=== PATIENT | female | born 1985 | race Caucasian/White ===

== ENCOUNTER 2016-12-10 05:18 | Inpatient (IN) | payer BC ==
[2016-12-10] MEDS ORDERED: Sodium Chloride 0.9% 2.5 ML Syringe FLUSH PRN (06:23)
[2016-12-10] MEDS ORDERED: ceFAZolin 2 GM in Premix Bag 1 BAG IV ONE (06:23)
[2016-12-10] MEDS ORDERED: Sodium Chloride 0.9% 10 ML Syringe FLUSH PRN (06:23)
[2016-12-10] MEDS ORDERED: Citric Acid/Sodium Citrate Solution 30 ML Cup PO SCH (06:30)
[2016-12-10] MEDS: Lactated Ringers 1,000 ML IV SCH ×4 (06:43→19:47)
[2016-12-10] MEDS ORDERED: Morphine PF 10 MG/10 ML SDV ONE (07:15)
[2016-12-10] MEDS ORDERED: Oxytocin/Lactated Ringers 30 UNIT/500 ML BAG ONE (07:25)
--- NOTE | 2016-12-10 07:36 | PCM.PREANE ---
Preanesthetic Assessment - Anesthesia/Transfusion/Family Hx Anesthesia History: Prior Anesthesia Without Reaction (c section x 2) Other Type of Anesthesia Reaction Comment: "sister had cardiac arrest after her gallbladder surgery" Transfusion History: No Prior Transfusion(s) - Review of Systems General: No Symptoms Pulmonary: No Symptoms Cardiovascular: No Symptoms Gastrointestinal: No symptoms Neurological: No Symptoms Other: Reports: None - Physical Assessment NPO Status Date: 12/09/16 Height: 1.62 m Weight: 107.048 kg ASA Class: 2 Mental Status: Alert & Oriented x3 Airway Class: Mallampati = 1 Dentition: Reports: Normal Dentition ROM/Head Extension: Full Lungs: Clear to auscultation, Normal respiratory effort Cardiovascular: Regular Rate, Regular Rhythm - Lab Values: Laboratory Last Values WBC 9.79 K/uL (4.0-11.0) 12/09/16 09:20 RBC 4.39 M/uL (4.30-5.90) 12/09/16 09:20 Hgb 13.2 g/dL (12.0-16.0) 12/09/16 09:20 Hct 38.5 % (36.0-46.0) 12/09/16 09:20 MCV 87.7 fL (80.0-98.0) 12/09/16 09:20 MCH 30.1 pg (27.0-32.0) 12/09/16 09:20 MCHC 34.3 g/dL (31.0-37.0) 12/09/16 09:20 RDW Std Deviation 38.9 fl (28.0-62.0) 12/09/16 09:20 RDW Coeff of Roel 13 % (11.0-15.0) 12/09/16 09:20 Plt Count 123 K/uL (150-400) L 12/09/16 09:20 MPV 13.20 fL (7.40-12.00) H 12/09/16 09:20 Blood Type A POSITIVE 12/09/16 09:20 Antibody Screen NEGATIVE 12/09/16 09:20 - Allergies Allergies/Adverse Reactions: Allergies Allergy/AdvReac Type Severity Reaction Status Date / Time No Known Allergies Allergy Verified 12/04/16 08:37 - Blood Blood Available: Yes - Anesthesia Plan Pre-Op Medication Ordered: Antacids - Acknowledgements Anesthesia Type Planned: Spinal Pt an Appropriate Candidate for the Planned Anesthesia: Yes Alternatives and Risks of Anesthesia Discussed w Pt/Guardian: Yes Pt/Guardian Understands and Agrees with Anesthesia Plan: Yes Additional Comments: gestational DM, diet controlled PreAnesthesia Questionnaire HEENT History: Reports: None Genitourinary History: Reports: None [employer] History: Reports: Endocrine/Metabolic History: Reports: Diabetes, Gestational, Obesity/BMI 30+ Other Endocrine/Metabolic History: gestational diabetes controlled by diet - Past Surgical History Head Surgeries/Procedures: Reports: None HEENT Surgical History: Reports: Tonsillectomy Female Surgical History: Reports: Section - SUBSTANCE USE Smoking Status *Q: Never Smoker Recreational Drug Use History: No - HOME MEDS Home Medications: Home Meds Acetaminophen [Tylenol] 2 tab PO ASDIRECTED 12/04/16 [History] Vit W-Ca,Fe,FA(<1 mg) [ Vitamins] 1 tab PO DAILY 12/04/16 [ History] - CURRENT (IN HOUSE) MEDS Current Meds: Current Medications Citric Acid/Sodium Citrate (Bicitra Solution) 30 ml PO .ONCE HIGINIO Lactated Ringer's (Ringers, Lactated) 1,000 mls @ 500 mls/hr IV .BOLUS HIGINIO Last Admin: 12/10/16 07:13 Dose: 500 mls/hr Sodium Chloride (Saline Flush) 10 ml FLUSH ASDIRECTED PRN PRN Reason: Keep Vein Open Sodium Chloride (Saline Flush) 2.5 ml FLUSH ASDIRECTED PRN PRN Reason: Keep Vein Open Discontinued Medications Cefazolin Sodium/Dextrose 2 gm (/ Premix) 50 mls @ 100 mls/hr IV ONETIME ONE Stop: 12/10/16 06:52 Oxytocin/Lactated Ringer's (Pitocin In Lr 30 Units/500 Ml) Confirm Administered Dose 30 unit in 500 mls @ as directed .ROUTE .STK-MED ONE Stop: 12/10/16 07:26 Morphine Sulfate (Duramorph Pf) Confirm Administered Dose 10 mg .ROUTE .STK-MED ONE Stop: 12/10/16 07:16
[2016-12-10] MEDS ORDERED: ePHEDrine 50 MG/ML SDV ONE (08:22)
[2016-12-10] MEDS ORDERED: Phenylephrine/Normal Saline 100 MCG/ML 10 ML Syringe ONE (08:36)
[2016-12-10] MEDS ORDERED: Octyl 2-Cyanoacrylate 1 Tube ONE (08:46)
[2016-12-10] MEDS ORDERED: Bisacodyl 10 MG Supp RECTAL PRN (09:20)
[2016-12-10] MEDS ORDERED: Acetaminophen/oxyCODONE 325-5 MG Tab PO PRN ×2 (09:20→09:27)
[2016-12-10] MEDS ORDERED: Simethicone 80 MG Tab.Chew PO PRN (09:20)
[2016-12-10] MEDS ORDERED: Lanolin 100% Cream 7 GM Tube TOP PRN (09:20)
[2016-12-10] MEDS ORDERED: Aluminum Hydroxide/Magnesium Hydroxide/Simethicone Susp 30 ML Cup PO PRN (09:20)
[2016-12-10] MEDS ORDERED: diphenhydrAMINE 50 MG/ML SDV IVPUSH PRN ×2 (09:20→09:25)
[2016-12-10] MEDS ORDERED: Ibuprofen 800 MG Tab PO PRN (09:20)
[2016-12-10] MEDS ORDERED: Naloxone 0.4 MG/ML Syringe IVPUSH PRN (09:25)
[2016-12-10] MEDS ORDERED: Nalbuphine 10 MG/1 ML Vial IVPUSH PRN (09:25)
[2016-12-10] MEDS ORDERED: fentaNYL 100 MCG/2 ML SDV IVPUSH PRN (09:27)
--- NOTE | 2016-12-10 09:31 | PCM.OPNOTE ---
- General Post-Op/Procedure Note Date of Surgery/Procedure: 12/10/16 Operative Procedure(s): Repeat LTCS with bilateral salpingectomy Findings: Term female APGARs 8, 8 weight 3340 gm. Delivery of intact placenta with 3V cord. Normal appearing pelvis Pre Op Diagnosis: 39 week IUP. Previous c section, desires repeat. Undesired fertility Post-Op Diagnosis: Same Anesthesia Technique: Spinal Primary Surgeon: Pamela Gandhi Pathology: bilateral fallopian tubes Fluid Replacement, Intraop: 1,500 Output, Urine Amount: 200 EBL in mLs: 500 Condition: Good Free Text/Narrative:: Dictation [id number]
--- NOTE | 2016-12-10 09:45 | PCM.POSTAN ---
POST ANESTHESIA ASSESSMENT - MENTAL STATUS Mental Status: alert, oriented - RESPIRATORY Respiratory Status: respiratory rate WNL, airway patent, O2 saturation stable - CARDIOVASCULAR CV Status: pulse rate WNL, blood pressure stable - GASTROINTESTINAL GI Status: no symptoms - PAIN Pain Score: 0 - POST OP HYDRATION Hydration Status: adequate & stable
[2016-12-10] MEDS: Ketorolac 30 MG/ML SDV IVPUSH SCH ×3 (09:50→23:18)
[2016-12-10] MEDS: Ondansetron 4 MG/2 ML SDV IV PRN ×2 (11:03→14:42)
--- NOTE | 2016-12-10 14:46 | OR ---
SURGEON: Pamela Gandhi M.D. DATE OF PROCEDURE: 12/10/2016 PREOPERATIVE DIAGNOSES: 1. A 39-week intrauterine . 2. Previous section x2, desires repeat. 3. Undesired fertility. POSTOPERATIVE DIAGNOSES: 1. A 39-week intrauterine . 2. Previous section x2, desires repeat. 3. Undesired fertility. PROCEDURE: Repeat low transverse section with bilateral salpingectomy. ANESTHESIA: Spinal. ESTIMATED BLOOD LOSS: 500 mL. FLUIDS: 1500 mL crystalloid. COMPLICATIONS: None known. FINDINGS: Term female. score 8 at 1 minute, 8 at 5 minute. Weight of 3340 g. Intact placenta, 3-vessel cord, normal appearing pelvis. DISPOSITION: The patient to PACU, stable. , nursery. PROCEDURE IN DETAIL: Morenita is a 30-year-old, G3, P2-0-0-2 at 39 weeks' gestational age, who presents today for scheduled repeat delivery. She also no longer desired fertility and would like to have tubal ligation performed at the time of the repeat delivery. This has been approved by the [facility] subethics Committee. Risks of procedures have been discussed. Proper consent obtained. The patient was taken to the operating room, where she underwent spinal anesthetic, was then placed in dorsal supine position with leftward tilt. SCDs to lower extremities. Ricks to gravity. She was prepped and draped in the usual sterile fashion. Received Ancef prophylactically. Time-out was performed. Anesthesia was tested and found to be adequate. Previous Pfannenstiel scar was now excised. Subcutaneous tissue was incised down to the level of the midline. Subcutaneous tissue was now dissected down the midline fascia which was incised and lateralized on either side sharply and bluntly. The superior aspect of fascia was tented upward, dissected sharply and bluntly away from underlying muscles on the inferior aspect of the fascia. Rectus muscle in the midline. The peritoneum was tented upward and entered sharply. Rectus muscles were lateralized bluntly and sharply. The uterovesical reflection was visualized. The self-retaining retractor now gently placed. Uterine position, position palpated. Bladder flap was created sharply and bluntly. Bladder was mobilized away from the lower uterine segment. Low transverse hysterotomy was now performed. Uterine cavity was entered bluntly using scalpel and clear fluid was returned with amniotomy. Hysterotomy was lateralized bluntly. The infant head was now flexed and delivered from the pelvis. Fundal pressure was applied. The 's head was delivered followed by anterior shoulder posterior made by without difficulty. The 's oropharynx and nares were bulb suctioned. Cord clamped x2 and cut. Infant was handed off to attending nursing staff. Cord arterial, cord venous, cord blood sampling was obtained. The placenta was now delivered. Uterine cavity was cleared of all clot and debris. Hysterotomy was repaired using 0 Vicryl in continuous running locked fashion followed by re-imbricating layer. Posterior aspect of the uterus inspected, no defects or hematomas found to be forming. Region was well irrigated and suction dried. The fallopian tubes were now isolated. The right fallopian tube was secured with a Hunter clamp x2, and using a Harmonic handheld device, the salpingectomy was now performed. The right fallopian tube will be sent to Pathology and a similar fashion was performed on the patient's left side. The fallopian tube was isolated with Hunter clamps and salpingectomy was performed. This will go to Pathology. The operative sites along the salpingectomies were inspected, any areas of oozing were cauterized. Hemostasis overall appears evident. The uterus turned to the abdominal cavity. Colonic gutters were cleared of all clot and debris, well irrigated and suction dried. The salpingectomy site was again inspected, found to be hemostatic. Self-retaining retractor now gently removed. The rectus muscles reapproximated using 0 Vicryl in inverted mattress suture technique. Anterior aspect of the muscle, posterior aspect fascia was closely inspected. Any areas of oozing were cauterized. The rectus fascia was reapproximated using 0 Vicryl in continuous running fashion beginning laterally and incised in the midline. Subcutaneous tissue was well irrigated, suction dried. Any areas of oozing were cauterized. Deep subcutaneous tissue was reapproximated using 3-[address]-1 in continuous running fashion. The skin edges were reapproximated with 3-0 Vicryl in a David needle and the incision was reinforced with Dermabond. Uterus remained firm. Hemostasis evident. Sponge, instrument, and needle count were correct x2. The patient tolerated this procedure well overall. She will go to PACU in stable condition. The fallopian tube is pathology. RADHA / JESSICA /[id number] MTDMichael
--- NOTE | 2016-12-10 21:06 | PCM48HPAN ---
Post Anesthesia Note - EVALUATION WITHIN 48HRS OF ANESTHETIC Vital Signs in Normal Range: Yes Patient Participated in Evaluation: Yes Respiratory Function Stable: Yes Airway Patent: Yes Cardiovascular Function Stable: Yes Hydration Status Stable: Yes Pain Control Satisfactory: Yes Nausea and Vomiting Control Satisfactory: Yes Mental Status Recovered: Yes
[2016-12-10] MEDS: Docusate Sodium 100 MG Cap PO SCH (23:00)
--- NOTE | 2016-12-11 04:57 | PCM.PNPP ---
- General Info Date of Service: 12/11/16 Functional Status: Reports: pain controlled, tolerating diet, ambulating - Review of Systems General: Denies: Fever, Weakness Cardiovascular: Denies: Chest Pain, Palpitations, Lightheadedness Gastrointestinal: Reports: Nausea (is improved this morning'). Denies: Vomiting Genitourinary: Denies: flank pain Neurological: Denies: Headache Psychiatric: Reports: no symptoms - General Info Date of Service: 12/11/16 - Patient Data Vital Signs - most recent: Last Vital Signs Temp 36.6 C 12/11/16 00:05 Pulse 79 12/11/16 03:00 Resp 18 12/11/16 03:00 BP 131/57 L 12/11/16 00:05 Pulse Ox 96 12/11/16 03:00 Weight - most recent: 107.048 kg I&O - last 24 hours: Intake & Output 12/10/16 12/10/16 12/11/16 14:59 22:59 06:59 Intake Total 3100 1900 Output Total 400 400 Balance 2700 1500 Lab Results - last 24 hrs: Laboratory Results - last 24 hr 12/10/16 Range/Units 08:07 POC Glucose 80 (60-110) mg/dL Med Orders - Current: Current Medications Al Hydroxide/Mg Hydroxide (Mag-Al Plus) 30 ml PO Q8H PRN PRN Reason: Heartburn Bisacodyl (Dulcolax) 10 mg RECTAL .ONCE PRN PRN Reason: Constipation Citric Acid/Sodium Citrate (Bicitra Solution) 30 ml PO .ONCE HIGINIO Diphenhydramine HCl (Benadryl) 25 mg IVPUSH Q6H PRN PRN Reason: Itching or Nausea Last Admin: 12/10/16 11:03 Dose: 25 mg Diphenhydramine HCl (Benadryl) 25 mg IVPUSH Q4H PRN PRN Reason: Itching Stop: 12/11/16 09:26 Docusate Sodium (Colace) 100 mg PO BID HIGINIO Last Admin: 12/10/16 23:00 Dose: Not Given Emollient Ointment (Lansinoh Hpa) 0 gm TOP ASDIRECTED PRN PRN Reason: Sore Nipples Fentanyl (Sublimaze) 25 - 50 mcg IVPUSH Q30M PRN PRN Reason: Pain Last Admin: 12/10/16 13:31 Dose: 25 mcg Lactated Ringer's (Ringers, Lactated) 1,000 mls @ 500 mls/hr IV .BOLUS [facility] Last Admin: 12/10/16 07:13 Dose: 500 mls/hr Lactated Ringer's (Ringers, Lactated) 1,000 mls @ 125 mls/hr IV ASDIRECTED [facility] Last Admin: 12/10/16 19:47 Dose: 125 mls/hr Ibuprofen (Motrin) 800 mg PO Q8H PRN PRN Reason: mild pain or fever Ketorolac Tromethamine (Toradol) 30 mg IVPUSH Q6H HIGINIO Stop: 12/11/16 09:31 Last Admin: 12/10/16 23:18 Dose: 30 mg Nalbuphine HCl (Nubain) 5 mg IVPUSH Q3H PRN PRN Reason: Pruritis Stop: 12/11/16 09:26 Naloxone HCl (Narcan) 0.1 mg IVPUSH ONETIME PRN PRN Reason: Other Stop: 12/11/16 09:26 Ondansetron HCl (Zofran) 4 mg IV Q4H PRN PRN Reason: Nausea/Vomiting Last Admin: 12/10/16 14:42 Dose: 4 mg Oxycodone/Acetaminophen (Percocet 325-5 Mg) 1 tab PO Q4H PRN PRN Reason: Pain (moderate 4-6) Oxycodone/Acetaminophen (Percocet 325-5 Mg) 2 tab PO Q4H PRN PRN Reason: Pain (moderate 4-6) Oxycodone/Acetaminophen (Percocet 325-5 Mg) 1 - 2 tab PO Q6H PRN PRN Reason: Pain Stop: 12/12/16 14:00 Last Admin: 12/11/16 04:24 Dose: 2 tab Simethicone (Simethicone) 80 mg PO Q4H PRN PRN Reason: Gas Sodium Chloride (Saline Flush) 10 ml FLUSH ASDIRECTED PRN PRN Reason: Keep Vein Open Sodium Chloride (Saline Flush) 2.5 ml FLUSH ASDIRECTED PRN PRN Reason: Keep Vein Open Discontinued Medications Ephedrine Sulfate (Ephedrine Sulfate) Confirm Administered Dose 50 mg .ROUTE .STK-MED ONE Stop: 12/10/16 08:23 Cefazolin Sodium/Dextrose 2 gm (/ Premix) 50 mls @ 100 mls/hr IV ONETIME ONE Stop: 12/10/16 06:52 Last Admin: 12/10/16 20:37 Dose: Not Given Oxytocin/Lactated Ringer's (Pitocin In Lr 30 Units/500 Ml) Confirm Administered Dose 30 unit in 500 mls @ as directed .ROUTE .STK-MED ONE Stop: 12/10/16 07:26 Last Admin: 12/10/16 20:38 Dose: Not Given Morphine Sulfate (Duramorph Pf) Confirm Administered Dose 10 mg .ROUTE .STK-MED ONE Stop: 12/10/16 07:16 Octyl Cyanoacrylate (Dermabond Advance) Confirm Administered Dose 1 applic .ROUTE .STK-MED ONE Stop: 12/10/16 08:47 Phenylephrine HCl (Phenylephrine In Ns 100 Mcg/Ml) Confirm Administered Dose 1 mg .ROUTE .STK-MED ONE Stop: 12/10/16 08:37 - Interaction Support Person: - Recovery Exam Fundal Tone: Firm Fundal Level: 1 Fingerbreadths Below Umbilicus Fundal Placement: Midline Lochia Amount: Small Lochia Color: Rubra/Red Perineum Description: Intact, Minimal Bruising/Swelling Episiotomy/Laceration: None Bladder Status: Indwelling Catheter in Place Urinary Elimination: Indwelling Catheter - Exam General: alert, oriented Lungs: Normal respiratory effort Cardiovascular: Regular Rate, Regular Rhythm Abdomen: bowel sounds present, soft. No: CVA tenderness Extremities: no calf tenderness Skin: warm, dry, intact Wound/Incisions: no drainage, drainage. No: erythema Psy/Mental Status: alert, normal affect - Problem List & Annotations (1) delivery delivered SNOMED Code(s): 541668591 Code(s): O82 - ENCOUNTER FOR DELIVERY WITHOUT INDICATION Status: Acute Current Visit: Yes - Problem List Review Problem List Initiated/Reviewed/Updated: Yes - My Orders Last 24 Hours: My Active Orders 12/10/16 06:23 Patient Status [ADT] Routine Up ad Anali [RC] ASDIRECTED Vital Signs [RC] PER UNIT ROUTINE Sodium Chloride 0.9% [Saline Flush] 10 ml FLUSH ASDIRECTED PRN Sodium Chloride 0.9% [Saline Flush] 2.5 ml FLUSH ASDIRECTED PRN Peripheral IV Insertion Adult [OM.PC] Routine Schedule Procedure [COMM] Per Unit Routine Resuscitation Status Routine 12/10/16 06:25 Notify Provider Vital Signs [RC] PRN 12/10/16 06:30 Citric Acid/Sodium Citrate [Bicitra Solution] 30 ml PO .ONCE Lactated Ringers [Ringers, Lactated] 1,000 ml IV .BOLUS 12/10/16 09:20 Ambulate [RC] PER UNIT ROUTINE Communication Order [RC] PER UNIT ROUTINE Communication Order [RC] PER UNIT ROUTINE Communication Order [RC] Per Unit Routine May Shower [RC] ASDIRECTED Notify Provider Intake and Out [RC] ASDIRECTED Notify Provider Vital Signs [RC] ASDIRECTED Oxygen Therapy [RC] ASDIRECTED RT Incentive Spirometry [RC] Q2HWA Vital Signs [RC] PER UNIT ROUTINE Acetaminophen/oxyCODONE [Percocet 325-5 MG] 1 tab PO Q4H PRN Acetaminophen/oxyCODONE [Percocet 325-5 MG] 2 tab PO Q4H PRN Alum Hydrox/Mag Hydrox/Simeth [Mag-Al Plus] 30 ml PO Q8H PRN Bisacodyl [Dulcolax] 10 mg RECTAL .ONCE PRN Ibuprofen [Motrin] 800 mg PO Q8H PRN Lanolin [Lansinoh HPA] See Dose Instructions TOP ASDIRECTED PRN Ondansetron [Zofran] 4 mg IV Q4H PRN Simethicone 80 mg PO Q4H PRN diphenhydrAMINE [Benadryl] 25 mg IVPUSH Q6H PRN Abdominal Binder [OM.PC] Routine Assess Lochia [WOMSER] Per Unit Routine Assess Uterine Involution [WOMSER] Per Unit Routine Breast Pump [WOMSER] Per Unit Routine Heat Therapy [OM.PC] Routine Ice Therapy [OM.PC] Routine Peripheral IV Discontinue [OM.PC] Routine Sequential Compression Device [OM.PC] Per Unit Routine 12/10/16 09:21 Antiembolic Devices [RC] PER UNIT ROUTINE 12/10/16 09:30 Ketorolac [Toradol] 30 mg IVPUSH Q6H Lactated Ringers [Ringers, Lactated] 1,000 ml IV ASDIRECTED 12/10/16 21:00 Docusate Sodium [Colace] 100 mg PO BID 12/10/16 Lunch Regular Diet [DIET] 12/11/16 05:11 HEMOGLOBIN/HEMATOCRIT,HH [HEME] Timed - Assessment Assessment:: POD 1 status post repeat c section/bilateral salpingectomy Gestational diabetes-diet controlled - Plan Plan:: Continue postop cares. Ambulate today, remove rodrigeuz. may shower later.
[2016-12-11] MEDS: Ketorolac 30 MG/ML SDV IVPUSH SCH ×2 (05:13→10:38)
[2016-12-11] MEDS: Docusate Sodium 100 MG Cap PO SCH ×2 (09:22→22:03)
[2016-12-11] MEDS: Acetaminophen/oxyCODONE 325-5 MG Tab PO PRN ×4 (09:23→22:03)
[2016-12-12] MEDS: Acetaminophen/oxyCODONE 325-5 MG Tab PO PRN ×2 (03:32→10:39)
--- NOTE | 2016-12-12 07:30 | PCM.PNPP ---
- General Info Date of Service: 12/12/16 Functional Status: Reports: pain controlled, tolerating diet, ambulating, urinating - Review of Systems General: Reports: No Symptoms HEENT: Reports: no symptoms Pulmonary: Reports: no symptoms Cardiovascular: Reports: No Symptoms Gastrointestinal: Reports: No symptoms Genitourinary: Reports: no symptoms Musculoskeletal: Reports: no symptoms Skin: Reports: no symptoms Neurological: Reports: No Symptoms Psychiatric: Reports: no symptoms - Patient Data Vital Signs - most recent: Last Vital Signs Temp 36.7 C 12/12/16 05:05 Pulse 83 12/12/16 05:05 Resp 16 12/12/16 05:05 BP 117/56 L 12/12/16 05:05 Pulse Ox 95 12/12/16 05:05 Weight - most recent: 107.048 kg Lab Results - last 24 hrs: Laboratory Results - last 24 hr 12/11/16 Range/Units 06:13 POC Glucose 109 (60-110) mg/dL Med Orders - Current: Current Medications Al Hydroxide/Mg Hydroxide (Mag-Al Plus) 30 ml PO Q8H PRN PRN Reason: Heartburn Bisacodyl (Dulcolax) 10 mg RECTAL .ONCE PRN PRN Reason: Constipation Citric Acid/Sodium Citrate (Bicitra Solution) 30 ml PO .ONCE HIGINIO Diphenhydramine HCl (Benadryl) 25 mg IVPUSH Q6H PRN PRN Reason: Itching or Nausea Last Admin: 12/10/16 11:03 Dose: 25 mg Docusate Sodium (Colace) 100 mg PO BID HIGINIO Last Admin: 12/11/16 22:03 Dose: 100 mg Emollient Ointment (Lansinoh Hpa) 0 gm TOP ASDIRECTED PRN PRN Reason: Sore Nipples Fentanyl (Sublimaze) 25 - 50 mcg IVPUSH Q30M PRN PRN Reason: Pain Last Admin: 12/10/16 13:31 Dose: 25 mcg Lactated Ringer's (Ringers, Lactated) 1,000 mls @ 500 mls/hr IV .BOLUS HIGINIO Last Admin: 12/10/16 07:13 Dose: 500 mls/hr Lactated Ringer's (Ringers, Lactated) 1,000 mls @ 125 mls/hr IV ASDIRECTED [facility] Last Infusion: 12/11/16 04:15 Dose: Infused Ibuprofen (Motrin) 800 mg PO Q8H PRN PRN Reason: mild pain or fever Ondansetron HCl (Zofran) 4 mg IV Q4H PRN PRN Reason: Nausea/Vomiting Last Admin: 12/10/16 14:42 Dose: 4 mg Oxycodone/Acetaminophen (Percocet 325-5 Mg) 1 tab PO Q4H PRN PRN Reason: Pain (moderate 4-6) Oxycodone/Acetaminophen (Percocet 325-5 Mg) 2 tab PO Q4H PRN PRN Reason: Pain (moderate 4-6) Last Admin: 12/12/16 03:32 Dose: 2 tab Oxycodone/Acetaminophen (Percocet 325-5 Mg) 1 - 2 tab PO Q6H PRN PRN Reason: Pain Stop: 12/12/16 14:00 Last Admin: 12/11/16 04:24 Dose: 2 tab Simethicone (Simethicone) 80 mg PO Q4H PRN PRN Reason: Gas Sodium Chloride (Saline Flush) 10 ml FLUSH ASDIRECTED PRN PRN Reason: Keep Vein Open Sodium Chloride (Saline Flush) 2.5 ml FLUSH ASDIRECTED PRN PRN Reason: Keep Vein Open Discontinued Medications Diphenhydramine HCl (Benadryl) 25 mg IVPUSH Q4H PRN PRN Reason: Itching Stop: 12/11/16 09:26 Ephedrine Sulfate (Ephedrine Sulfate) Confirm Administered Dose 50 mg .ROUTE .STK-MED ONE Stop: 12/10/16 08:23 Cefazolin Sodium/Dextrose 2 gm (/ Premix) 50 mls @ 100 mls/hr IV ONETIME ONE Stop: 12/10/16 06:52 Last Admin: 12/10/16 20:37 Dose: Not Given Oxytocin/Lactated Ringer's (Pitocin In Lr 30 Units/500 Ml) Confirm Administered Dose 30 unit in 500 mls @ as directed .ROUTE .STK-MED ONE Stop: 12/10/16 07:26 Last Admin: 12/10/16 20:38 Dose: Not Given Ketorolac Tromethamine (Toradol) 30 mg IVPUSH Q6H HIGINIO Stop: 12/11/16 09:31 Last Admin: 12/11/16 10:38 Dose: 30 mg Morphine Sulfate (Duramorph Pf) Confirm Administered Dose 10 mg .ROUTE .STK-MED ONE Stop: 12/10/16 07:16 Nalbuphine HCl (Nubain) 5 mg IVPUSH Q3H PRN PRN Reason: Pruritis Stop: 12/11/16 09:26 Naloxone HCl (Narcan) 0.1 mg IVPUSH ONETIME PRN PRN Reason: Other Stop: 12/11/16 09:26 Octyl Cyanoacrylate (Dermabond Advance) Confirm Administered Dose 1 applic .ROUTE .STK-MED ONE Stop: 12/10/16 08:47 Phenylephrine HCl (Phenylephrine In Ns 100 Mcg/Ml) Confirm Administered Dose 1 mg .ROUTE .STK-MED ONE Stop: 12/10/16 08:37 - Infant Interaction Disposition, : in Room with Family Interaction: Holding Feeding: Breastfed ; Nursed Well Support Person: - Recovery Exam Fundal Tone: Firm Fundal Level: 1 Fingerbreadths Below Umbilicus Fundal Placement: Midline Lochia Amount: Scant Lochia Color: Rubra/Red Perineum Description: Intact, Minimal Bruising/Swelling Episiotomy/Laceration: None Bladder Status: Voiding Urinary Elimination: Voided - Exam General: alert, oriented HEENT: Pupils equal Neck: supple Lungs: Clear to auscultation, Normal respiratory effort Cardiovascular: Regular Rate, Regular Rhythm Abdomen: bowel sounds present, soft, no tenderness, no distension Extremities: No: no edema (1+) Skin: warm, dry, intact Wound/Incisions: healing well Neurological: no new focal deficit Psy/Mental Status: alert, normal affect, normal mood - Problem List & Annotations (1) delivery delivered SNOMED Code(s): 595814548 Code(s): O82 - ENCOUNTER FOR DELIVERY WITHOUT INDICATION Status: Acute Current Visit: Yes - Problem List Review Problem List Initiated/Reviewed/Updated: Yes - Assessment Assessment:: POD 2 status post repeat c section/bilateral salpingectomy Gestational diabetes-diet controlled - Plan Plan:: Stable, minimal lochia, pain well controlled. Dismiss to home, discharge instructions given.
[2016-12-12] MEDS: Docusate Sodium 100 MG Cap PO SCH (08:16)
[2016-12-12 08:40] VITALS: BP 111/56
== END 2016-12-12 11:25 | disposition home or self-care (01) | DRG 540 ==
LOC: MW.OB 05:18
PROVIDERS: ADMIT Obstetrics & Gynecology; ATTEND Obstetrics & Gynecology
PROC: 10D00Z1 Extraction of Products of Conception, Low, Open Approach (ICD-10-PCS; principal; 2016-12-10)
PROC: 0UT70ZZ Resection of Bilateral Fallopian Tubes, Open Approach (ICD-10-PCS; 2016-12-10)
DX: O34.211 Maternal care for low transverse scar from previous cesarean delivery (principal); Z3A.39 39 weeks gestation of pregnancy; Z37.0 Single live birth; Z30.2 Encounter for sterilization
CPT/HCPCS: 01961; 36415; 59025; 82962; 85014; 85018; 85027; 86850; 86900; 86901; 88304; A9270-GY; J0690; J1200; J1885; J2270; J2405; J3010; J7120

== ENCOUNTER 2017-01-28 12:34 | Emergency (ER) | payer BC ==
--- NOTE | 2017-01-28 13:58 | CR ---
EXAMINATION: Lumbar spine HISTORY: Pain COMPARISON: None TECHNIQUE: AP and a previous FINDINGS: The lumbar spinal alignment is normal. The vertebral body heights and disc spaces appear ma intained. No fracture or dislocation. The SI joints are symmetric. IMPRESSION: Grossly unremarkable lumbar spine.
[2017-01-28] MEDS ORDERED: Ketorolac 60 MG/2 ML SDV IM ONE (14:14)
--- NOTE | 2017-01-28 14:51 | EDM.PDOC ---
ED HPI GENERAL MEDICAL PROBLEM - General Chief Complaint: Back Pain or Injury Stated Complaint: BACK PAIN Time Seen by Provider: 01/28/17 12:45 Source of Information: Reports: Patient History Limitations: Reports: No Limitations - History of Present Illness INITIAL COMMENTS - FREE TEXT/NARRATIVE: HISTORY AND PHYSICAL: History of present illness: [Patient comes to the emergency room complaining of low back pain. Has been present for the past 4 days. She's been working with a chiropractor for the past week due to low back pain and has had some improvement in her symptoms. On Wednesday she tweaked her low back again and has had increased pain. She saw her chiropractor this morning who recommended she follow-up in the ER for reevaluation. Patient's had no fever or chills. Pain is localized just to her low back that radiates to the front of both upper thighs. No radiation down her thighs into her lower legs. No numbness or tingling. Her back feels weak. She's had no change to bowel or bladder. No abdominal pain nausea or vomiting. No chest pain shortness of breath or difficulty breathing. times approximately 6 weeks. Patient's been taking ibuprofen without improvement in her symptoms.] Review of systems: As per history of present illness and below otherwise all systems reviewed and negative. Past medical history: As per history of present illness and as reviewed below otherwise noncontributory. Surgical history: As per history of present illness and as reviewed below otherwise noncontributory. Social history: No reported history of drug or alcohol abuse. Family history: As per history of present illness and as reviewed below otherwise noncontributory. Physical exam: HEENT: Atraumatic, normocephalic. Lungs: Clear to auscultation, breath sounds equal bilaterally. Heart: S1S2, regular rate and rhythm. Abdomen: Obese, Soft, nondistended, nontender. Negative for costovertebral tenderness. Pelvis: Stable nontender. Genitourinary: Deferred. Rectal: Deferred. Back: no rashes lesions or abnormalities noted. Tender with palpation over her SI joints, worse on left than right. Negative straight leg raise. Range of motion is decreased with flexion and extension of low back. No pain to thoracic or cervical spine. Extremities: Atraumatic, no cyanosis or edema. Patellar reflexes are 2+ and equal bilaterally. Neurovascular unremarkable. Neuro: Awake, alert, oriented. Cranial nerves II through XII unremarkable. Motor and sensory unremarkable throughout. Exam nonfocal. Diagnostics: [L/S x-rays] Therapeutics: [Toradol 60 mg IM] Impression: [Low back strain] Plan: [Discussed with patient that x-rays are within normal limits and recommend treating as low back strain. Ice packs, over the counter analgesics. She is given a prescription for tramadol 50 mg #10 take one by mouth every 6 hours as needed for pain 0 refills, cyclobenzaprine 10 mg #20 sig one by mouth 3 times daily as needed for muscle spasm 0 refills. Continue follow-up with chiropractor as needed and as desired. Recommend massage and gentle muscle stretching. Follow up with PCP. She is in agreement with today's plan.] Definitive disposition and diagnosis as appropriate pending reevaluation and review of above. 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: Endocrine/Metabolic History: Reports: Diabetes, Gestational, Obesity/BMI 30+ Other Endocrine/Metabolic History: gestational diabetes controlled by diet - Past Surgical History Head Surgeries/Procedures: Reports: None HEENT Surgical History: Reports: Tonsillectomy Female Surgical History: Reports: Section Social & Family History - Family History Family Medical History: Noncontributory - Tobacco Use Smoking Status *Q: Never Smoker Second Hand Smoke Exposure: No - Caffeine Use Caffeine Use: Reports: None - Recreational Drug Use Recreational Drug Use: No ED ROS GENERAL - Review of Systems Review Of Systems: ROS reveals no pertinent complaints other than HPI. ED EXAM,LOWER BACK PAIN/INJURY - Physical Exam Exam: See Below Course - Vital Signs Last Recorded V/S: Last Vital Signs Temp 97.5 F 01/28/17 12:40 Pulse 74 01/28/17 12:40 Resp 20 01/28/17 12:40 BP 124/66 01/28/17 12:40 Pulse Ox 98 01/28/17 12:40 - Orders/Labs/Meds Meds: Medications Discontinued Medications Generic Name Dose Route Start Last Admin Trade Name Ara PRN Reason Stop Dose Admin Ketorolac Tromethamine 60 mg 01/28/17 14:14 01/28/17 14:38 Toradol IM 01/28/17 14:15 60 mg ONETIME ONE Administration Departure - Departure Time of Disposition: 14:50 Disposition: Home, Self-Care 01 Condition: Good Clinical Impression: Low back pain - Discharge Information Referrals: PCP,None [Primary Care Provider] - Additional Instructions: The following information is given to patients seen in the emergency department who are being discharged to home. This information is to outline your options for follow-up care. We provide all patients seen in our emergency department with a follow-up referral. The need for follow-up, as well as the timing and circumstances, are variable depending upon the specifics of your emergency department visit. If you don't have a primary care physician on staff, we will provide you with a referral. We always advise you to contact your personal physician following an emergency department visit to inform them of the circumstance of the visit and for follow-up with them and/or the need for any referrals to a consulting specialist. The emergency department will also refer you to a specialist when appropriate. This referral assures that you have the opportunity for follow-up care with a specialist. All of these measure are taken in an effort to provide you with optimal care, which includes your follow-up. Under all circumstances we always encourage you to contact your private physician who remains a resource for coordinating your care. When calling for follow-up care, please make the office aware that this follow-up is from your recent emergency room visit. If for any reason you are refused follow-up, please contact the [facility] emergency department at and asked to speak to the emergency department charge nurse. [facility] [address] [place] [id number] Follow-up with your primary care provider at the clinic listed above in 48-72 hours. Massage may be helpful. Continues daycare director as he wish. Tylenol alternating with ibuprofen every 4 hours. Take at medications as prescribed. Return to ER as needed as discussed.
[2017-01-28 15:16] VITALS: BP 115/59
== END 2017-01-28 15:05 | disposition home or self-care (01) ==
LOC: MW.ED 12:34
DX: S39.012A Strain of muscle, fascia and tendon of lower back, initial encounter (principal); E66.9 Obesity, unspecified; Z98.890 Other specified postprocedural states; Z68.39 Body mass index [BMI] 39.0-39.9, adult; X58.XXXA Exposure to other specified factors, initial encounter
CPT/HCPCS: 72100; 96372; 99283; J1885